=== PATIENT | male | born 1975 | race Caucasian/White ===

== ENCOUNTER 2016-08-27 11:50 | Emergency (ER) | payer OTHER ==
[~2016-08-27] VITALS: Ht 182.8 cm; Wt 99.8 kg
[~2016-08-27 11:50] MED LIST: FLEXERIL10 MG PO; HYDROCODONE BIT1 T11 PO; Motrin,Rufen800 MG PO; NAPROSYN500 MG PO; NKHM; ZOFRAN ODT4 MG SL
[2016-08-27] MEDS ORDERED: NAPROXEN500 MG PO (11:54)
[2016-08-27 12:21] LABS: BILIRUBIN NEGATIVE (NEGATIVE); BLOOD 1+ (NEGATIVE); CLARITY CLEAR (CLEAR); COLOR STRAW (YELLOW); GLUCOSE NEGATIVE (NEGATIVE); KETONE NEGATIVE (NEGATIVE); LEUKO ESTERASE NEGATIVE (NEGATIVE); NITRITE NEGATIVE (NEGATIVE); PH 5.5 (5.0-9.0); PROTEIN NEGATIVE (NEGATIVE); SPECIFIC GRAVITY <= 1.005 (1.005-1.030); UROBILINOGEN 0.2 E.U./dl (0.2-1.0)
[2016-08-27 12:30] LABS: BACTERIA TRACE; EPITHELIAL CELLS 0-2; URINE REFLEX COMMENT YES (NO); WBC 0-2 wbc/hpf (0-5)
== END 2016-08-27 14:04 | disposition home or self-care (01) ==
LOC: ED 11:50
PROVIDERS: Nurse Practitioner Family
DX: R10.32 Left lower quadrant pain (principal); F17.200 Nicotine dependence, unspecified, uncomplicated

== ENCOUNTER 2017-03-20 08:56 | Emergency (ER) | payer MEDICARE, MEDICAID ==
[~2017-03-20] VITALS: Ht 182.8 cm; Wt 108.9 kg
[~2017-03-20 08:56] MED LIST changes: +NAPROXEN500 MG PO
[2017-03-20] MEDS ORDERED: NAPROSYN500 MG PO ×2 (09:18→09:27)
== END 2017-03-20 10:33 | disposition home or self-care (01) ==
LOC: ED 08:56
DX: S46.911A Strain of unspecified muscle, fascia and tendon at shoulder and upper arm level, right arm, initial encounter (principal); F17.200 Nicotine dependence, unspecified, uncomplicated; X58.XXXA Exposure to other specified factors, initial encounter; Y93.89 Activity, other specified; Y92.89 Other specified places as the place of occurrence of the external cause; Y99.8 Other external cause status

== ENCOUNTER 2018-01-27 06:44 | Emergency (ER) | payer OTHER ==
[~2018-01-27] VITALS: Ht 182.8 cm; Wt 108.9 kg
--- NOTE | ~2018-01-27 | EKG ---
[place], [place] ELECTROCARDIOGRAM REPORT NAME: GRADY JAIN UNIT #: [id number] ROOM: DOCTOR: KRISTA RAMIREZ MD BIRTHDATE: [birth year] DOS: 01/27/2018 TIME: 0732 hours. FINDINGS: 1. Sinus bradycardia at 53 beats per minute. 2. Left anterior hemiblock and nonspecific ST elevation in chest leads. 3. An abnormal ECG. 4. No previous tracing is available for comparison. KRISTA RAMIREZ MD CM:EKGRPT:ELECTROCARDIOGRAM REPORT [id number] KRISTA RAMIREZ MD
== END 2018-01-27 08:54 | disposition home or self-care (01) ==
LOC: ED 06:44
DX: M25.511 Pain in right shoulder (principal); M54.6 Pain in thoracic spine; F17.200 Nicotine dependence, unspecified, uncomplicated; Z98.890 Other specified postprocedural states

== ENCOUNTER 2018-01-29 08:45 | Emergency (ER) | payer OTHER ==
[~2018-01-29] VITALS: Ht 411.4 cm; Wt 108.9 kg
--- NOTE | ~2018-01-29 | EKG ---
[place], [place] ELECTROCARDIOGRAM REPORT NAME: GRADY JAIN UNIT #: [id number] ROOM: DOCTOR: KRISTA RAMIREZ MD BIRTHDATE: [birth year] DOS: 01/29/2018 TIME: 0857 hours. FINDINGS: 1. Normal sinus rhythm at 63 beats per minute. 2. The tracing is normal. 3. No previous tracing is available for comparison. KRISTA RAMIREZ MD CM:EKGRPT:ELECTROCARDIOGRAM REPORT [id number] KRISTA RAMIREZ MD
[2018-01-29 09:11] LABS: BASO # 0.1 10*3/uL (0.0-0.1); BASO % 1.5 % (0.0-1.0); EOS # 0.4 10*3/uL (0.0-0.4); EOS % 5.8 % (1.0-4.0); HEMATOCRIT 45.3 % (42.0-52.0); HEMOGLOBIN 16.1 g/dl (14.0-18.0); LYMPH # 2.1 10*3/uL (1.3-4.4); LYMPH % 29.6 % (27.0-41.0); MEAN CORPUSCULAR HGB 32.3 pg (27.0-31.0); MEAN CORPUSCULAR HGB CONC 35.5 g/dl (33.0-37.0); MEAN PLATELET VOLUME 10.3 fl (9.6-12.3); MONO # 0.5 10*3/uL (0.1-1.0); MONO % 6.9 % (3.0-9.0); NEUT # 3.9 10*3/uL (2.3-7.9); NEUT % 55.4 % (47.0-73.0); PLATELET COUNT AUTOMATED 229 10*3/uL (130-400); RED BLOOD COUNT 4.98 10*6/uL (4.50-5.90); RED CELL DISTRI WIDTH 12.2 % (0-14.5); WHITE BLOOD COUNT 7.1 10*3/uL (4.8-10.8)
[2018-01-29 09:23] LABS: ACT PARTIAL THROMBO TIME 22.3 SECONDS (20.8-31.5); INTERNATIONAL NORM RATIO 0.9 (2.0-3.5)
[2018-01-29 09:29] LABS: ALKALINE PHOSPHATASE 52 U/L (45-117); BUN 11 mg/dl (7-24); CHLORIDE 108 mmol/L (98-107); CREATININE 1.17 mg/dL (0.70-1.30); POTASSIUM 4.2 mmol/L (3.5-5.1); SGOT/AST 11 IU/L (3-35); SGPT/ALT 20 U/L (12-78); SODIUM 142 mmol/L (136-145); TOTAL PROTEIN 7.5 gm/dL (6.4-8.2)
[2018-01-29 09:33] LABS: TROPONIN I < 0.015 ng/ml (<0.045)
[2018-01-29] MEDS ORDERED: MEDROL DOSEPAK4 MG PO (10:29)
[2018-01-29] MEDS ORDERED: CYCLOBENZAPRINE10 MG PO (10:29)
== END 2018-01-29 10:43 | disposition home or self-care (01) ==
LOC: ED 08:45
PROVIDERS: Emergency Medicine
DX: G89.29 Other chronic pain (principal); M54.2 Cervicalgia; M25.511 Pain in right shoulder; M25.512 Pain in left shoulder; M25.522 Pain in left elbow

== ENCOUNTER 2018-06-25 08:22 | Emergency (ER) | payer OTHER ==
[~2018-06-25] VITALS: Ht 182.9 cm; Wt 108.9 kg
--- NOTE | ~2018-06-25 | EKG ---
[place], [place] ELECTROCARDIOGRAM REPORT NAME: GRADY JAIN UNIT #: [id number] ROOM: DOCTOR: EPIPHANY DRAFT REPORT BIRTHDATE: [birth year] [facility] Test Date: 2018-06-25 Test Time: 08:29:02 Pat Name: GRADY JAIN Department: Room: Gender: Second Facing Baster: Miranda Dc : 1975 Requested By: DEWAYNE HURLEY Order Number: [id number] Reading MD: Thony Haas MD Measurements Intervals [place] Rate: 63 P: 14 NV: 186 QRS: -71 QRSD: 97 T: 15 QT: 397 QTc: 407 Interpretive Statements Sinus rhythm Left anterior fascicular block No previous ECG available for comparison Electronically Signed On 06-25-2018 11:11:15 PST by Thony Haas MD CM:EKGRPT:ELECTROCARDIOGRAM REPORT [id number] DEWAYNE DAVIS DRAFT REPORT DEWAYNE HURLEY M.D.
[~2018-06-25 08:22] MED LIST changes: +CYCLOBENZAPRINE10 MG PO; +MEDROL DOSEPAK4 MG PO
[2018-06-25 08:39] LABS: BASO # 0.1 10*3/uL (0.0-0.1); EOS # 0.5 10*3/uL (0.0-0.4); EOS % 6.9 % (1.0-4.0); HEMATOCRIT 49.1 % (42.0-52.0); HEMOGLOBIN 17.7 g/dl (14.0-18.0); LYMPH # 2.5 10*3/uL (1.3-4.4); LYMPH % 35.2 % (27.0-41.0); MEAN CELL VOLUME 90.6 fl (80.0-94.0); MEAN CORPUSCULAR HGB 32.7 pg (27.0-31.0); MONO # 0.6 10*3/uL (0.1-1.0); MONO % 7.7 % (3.0-9.0); NEUT # 3.4 10*3/uL (2.3-7.9); NEUT % 47.4 % (47.0-73.0); PLATELET COUNT AUTOMATED 243 10*3/uL (130-400); RED BLOOD COUNT 5.42 10*6/uL (4.50-5.90); RED CELL DISTRI WIDTH 11.5 % (0-14.5); WHITE BLOOD COUNT 7.1 10*3/uL (4.8-10.8)
[2018-06-25 08:57] LABS: ALKALINE PHOSPHATASE 70 U/L (45-117); BUN 20 mg/dl (7-24); CHLORIDE 103 mmol/L (98-107); CREATININE 1.25 mg/dL (0.70-1.30); POTASSIUM 4.1 mmol/L (3.5-5.1); SGOT/AST 18 IU/L (3-35); SGPT/ALT 38 U/L (12-78); SODIUM 137 mmol/L (136-145); TOTAL PROTEIN 8.1 gm/dL (6.4-8.2)
[2018-06-25] MEDS ORDERED: Motrin,Rufen800 MG PO ×2 (08:58→09:28)
[2018-06-25 09:00] LABS: TROPONIN I < 0.015 ng/ml (<0.045)
== END 2018-06-25 09:52 | disposition home or self-care (01) ==
LOC: ED 08:22
PROVIDERS: Emergency Medicine
DX: M79.18 Myalgia, other site (principal); R07.89 Other chest pain; R51 Headache; R11.0 Nausea; Z79.899 Other long term (current) drug therapy